=== PATIENT | male | born 1975 | race Caucasian/White ===

== ENCOUNTER 2021-06-29 19:18 | Emergency (ER) | payer MEDICARE ==
[~2021-06-29] VITALS: Ht 180.3 cm; Wt 61.1 kg
[2021-06-29 20:01] LABS: BASOPHILS # (AUTO) 0.1 X10'3 (0-0.2); BASOPHILS % (AUTO) 0.6 % (0-1); EOSINOPHILS # (AUTO) 0.1 X10'3 (0-0.9); EOSINOPHILS % (AUTO) 0.9 % (0-6); HEMATOCRIT 41.2 % (42.0-52.0); HEMOGLOBIN 14.4 g/dl (14.0-17.9); LYMPHOCYTES # (AUTO) 1.5 X10'3 (1.1-4.8); LYMPHOCYTES % (AUTO) 16.1 % (21-51); MEAN CORPUSCULAR HEMOGLOBIN 33.9 PG (27.0-31.0); MEAN CORPUSCULAR HGB CONC 34.8 g/dL (33.0-36.5); MEAN CORPUSCULAR VOLUME 97.4 FL (78-98); MEAN PLATELET VOLUME 7.7 FL (7.4-10.4); MONOCYTES # (AUTO) 0.7 X10'3 (0-0.9); NEUTROPHILS # (AUTO) 7.2 X10'3 (1.8-7.7); NEUTROPHILS % (AUTO) 75.4 % (42-75); PLATELET COUNT 242 X10'3 (140-440); RED BLOOD COUNT 4.23 X10'6 (4.70-6.10); RED CELL DISTRIBUTION WIDTH 13.5 % (11.5-14.5); WHITE BLOOD COUNT 9.5 X10'3 (4.5-11.0)
[2021-06-29 20:09] LABS: CHLORIDE 97 MMOL/L (99-107); GLUCOSE 82 MG/DL (70-104); POTASSIUM 3.8 MMOL/L (3.5-5.1); SODIUM 132 MMOL/L (135-145); TOTAL CARBON DIOXIDE 30.3 MMOL/L (24-32)
[2021-06-29 20:10] LABS: ALANINE AMINOTRANSFERASE 24 U/L (12-78); ALBUMIN 3.6 G/DL (3.4-5.0); ALKALINE PHOSPHATASE 82 IU/L (46-116); ANION GAP 5 (8-16); ASPARTATE AMINO TRANSFERASE 20 U/L (10-37); BILIRUBIN,TOTAL 0.4 MG/DL (0.1-1.0); BLOOD UREA NITROGEN 9 MG/DL (7-18); BUN/CREATININE RATIO 11.1 (5.4-32.0); CREATININE 0.81 MG/DL (0.60-1.10); LIPASE 142 U/L (73-393); TOTAL PROTEIN 7.2 G/DL (6.4-8.2); eGFR > 90 ML/MIN
[2021-06-29 20:41] LABS: CLARITY,URINE CLEAR (Clear); COLOR,URINE YELLOW (Yellow); PH,URINE 6.5 (4.8-8.0); PROTEIN,URINE NEGATIVE (Neg); UA COLLECTION TYPE CLN CATCH MIDSTREAM
[2021-06-29 20:42] LABS: GLUCOSE, URINE NEGATIVE (Neg); KETONES,URINE NEGATIVE (Neg); LEUKOCYTE ESTERASE ,URINE NEGATIVE (Neg); NITRITES, URINE NEGATIVE (Neg); OCCULT BLOOD,URINE NEGATIVE (Neg); UROBILINOGEN,URINE 0.2 E.U/dL (0.2-1.0)
[2021-06-29] MEDS ORDERED: FAMO40TA73 PO (22:53)
[2021-06-29 23:29] VITALS: BP 104/68
== END 2021-06-29 23:32 | disposition home or self-care (01) ==
LOC: ER 19:19
DX: R10.13 Epigastric pain (principal); R10.30 Lower abdominal pain, unspecified; K59.00 Constipation, unspecified; Z79.2 Long term (current) use of antibiotics; Z79.899 Other long term (current) drug therapy
CPT/HCPCS: 36415; 80053; 81003; 83690; 85025; 99283

== ENCOUNTER 2021-08-24 17:50 | Emergency (ER) | payer MEDICARE ==
[~2021-08-24 17:50] MED LIST: FAMO40TA73 PO
== END 2021-08-24 20:43 | disposition left against medical advice (07) ==
LOC: ER 17:50
DX: R19.5 Other fecal abnormalities (principal); Z53.21 Procedure and treatment not carried out due to patient leaving prior to being seen by health care provider

== ENCOUNTER 2021-09-24 16:41 | Emergency (ER) | payer MEDICARE ==
[~2021-09-24] VITALS: Ht 177.8 cm; Wt 145.0 kg
[2021-09-24 16:45] VITALS: BP 112/66
== END 2021-09-24 22:58 | disposition left against medical advice (07) ==
LOC: ER 16:41
DX: K59.00 Constipation, unspecified (principal); Z53.21 Procedure and treatment not carried out due to patient leaving prior to being seen by health care provider

== ENCOUNTER 2025-03-30 14:50 | Emergency (ER) | payer MEDICARE, MEDICAID ==
[~2025-03-30] VITALS: Ht 180.3 cm; Wt 61.8 kg
[2025-03-30 16:00] LABS: LEUKOCYTE ESTERASE ,URINE NEGATIVE (Neg); NITRITES, URINE NEGATIVE (Neg); OCCULT BLOOD,URINE TRACE-INTACT (Neg)
[2025-03-30 16:06] LABS: UA COLLECTION TYPE CLN CATCH MIDSTREAM
[2025-03-30 16:19] LABS: SQUAMOUS EPITHELIAL CELL,UR NONE SEEN /LPF (FEW)
--- NOTE | 2025-03-30 16:42 | RADIOLOGY REPORT ---
EXAM: US ULTRASOUND PELVIS W/ORWO DPLX CLINICAL HISTORY: Groin pain extending into lower abd TECHNIQUE: Transabdominal ultrasound of the pelvis with color Doppler flow as clinically indicated. COMPARISON: None Findings/Impression: No focal fluid collections, cystic or solid lesions. Multiple loops of peristalsing bowel are noted. Appendix not visualized. No definite hernia appreciated.
--- NOTE | 2025-03-30 17:15 | Physician Documentation ---
History of Present Illness ~ Chief Complaint: Groin Pain Stated Complaint: GROIN PAIN Time Seen by MD: 15:15 Primary Medical Doctor: [facility] HPI Patient is a 49-year-old gentleman that presents to the emergency department for complaints of right groin pain and lower abdominal discomfort. Patient is very sleepy and requires repeat questioning together history. Patient reports that he suffers with chronic constipation and an inability to completely empty his bowels often. Patient reports that his last partial bowel movement was yesterday and that it looked normal. Patient denies any fevers nausea vomiting blood in his stool or urine difficulty with urination pain in the penis or scrotum or testes or any other concerning symptoms at this time. Patient denies any known history of hernia or any recent trauma. Medication Reconciliation Allergies: Coded Allergies: amoxicillin (Unverified Allergy, Unknown, VOMITING/DIARRHEA, 03/30/25) Scheduled Famotidine (Pepcid), 1 TABLET PO DAILY Review of Systems ROS As stated above in the HPI, otherwise all systems are reviewed and negative. Physical Exam Vital Signs: Temperature: 98.0, Source: Temporal, Heart Rate: 73, Respiratory Rate: 16, BP: 124/83, Pulse Oximetry: 100, Weight: 61.800 Oxygen Flow Rate: 0 Physical Exam VITALS: Reviewed and as above. GENERAL: Alert but drowsy, no apparent distress. HEENT: Normocephalic, atraumatic, PERRL, EOMI, dry mucosa, no erythema RESPIRATORY: Lungs clear, normal breath sounds, no respiratory distress. CHEST: No accessory muscle use, no retractions CV: Regular rate, rhythm, no edema, no murmur, No: JVD GI: Soft, non-tender, bowels sounds present, no rebound, guarding, or rigidity : Right groin pain slightly radiating into the lower abdomen. BACK: No CVA tenderness, or swelling MUSCULOSKELETAL No deformities, no edema SKIN: Warm and dry, no rash NEURO: Oriented x4, No motor or sensory deficit PSYCH: Normal mood and affect, no agitation Progress Results/Orders Results/Orders Orders - SUNSHINE CHAPIN [employer]WR[employer]SEMBLER Ultrasound Pelvis W/Orwo Dplx (03/30/25 ) Completed Orders - SUNSHINE CHAPIN [employer]SEM[employer] Ultrasound Pelvis W/Orwo Dplx (03/30/25 ) Ua W/Microscopic, Cult If Ind (03/30/25 15:50) Vital Signs 03/30/25 14:57 Temp 98.0 Pulse 73 Resp 16 B/P (MAP) 124/83 Pulse Ox 100 O2 Flow Rate 0 Laboratory Tests Test 03/30/25 15:50 Urine Specimen Description Cln catch midstream Urine Color Straw Urine Clarity Clear Urine pH 7.0 Urine Specific [place] <=1.005 Urine Protein Negative Urine Glucose (UA) Negative Urine Ketones Negative Urine Occult Blood Trace-intact Urine Nitrite Negative Urine Bilirubin Negative Urine Urobilinogen 0.2 Urine Leukocyte Esterase Negative Urine RBC 0-2 Urine WBC 0-4 Urine Squamous Epithelial Cells None seen Urine Bacteria None seen Urine Culture Indicated Not ind Volume Urine Centrifuged 10 ml Urine Comment Medical Decision Making Findings Abdominal exam without peritoneal signs. No evidence of acute abdomen at this time. Well appearing. Given exam and workup, low suspicion for acute hepatobiliary disease (including acute cholecystitis or cholangitis), acute pancreatitis (neg lipase), PUD (including gastric perforation), acute infectious processes (pneumonia, hepatitis, pyelonephritis), acute appendicitis, vascular catastrophe, bowel obstruction, viscus perforation, or testicular torsion, diverticulitis. Presentation not consistent with other acute, emergent causes of abdominal pain at this time. Significant amounts of stool noted on imaging. Discussed with patient increasing fluids introducing MiraLax until his daily routine until soft bowel movements are obtained. Patient will follow up with his primary care provider. Patient will return to the emergency department if he develops fevers nausea vomiting increased pain chills lethargy urinary symptoms or inability to have a bowel movement for multiple days. Urinary Diff Dx:Considerations: Include: AAA, Aortic dissection, Appendicitis, Appendicitis train, Bowel obstruction, Bladder outlet obstruc., Cholelithiasis, Choleangitis, Cholecystitis, DJD, Epididymitis, Hepatitis, HNP, Impaction, Musculoskeletal pain, Pancreatitis, Postoperative Comp., Prostatitis, Pyelonephritis, Renal failure, Renal infarction, Strain, Urolithiasis, Urinary Obstruction, Urethritis, Urinary retention, UTI, Other Genital Diff Dx:Considerations: Include: Abscess, Balanitis, Balanoposthitis, Cellulitis, Epididymitis, Entrapment injury, Kee's gangrene, Foreign body, Facture penis, Hydrocele, Inguinal hernia, Post-op Complication, Paraphimosis, Prostatitis, Priapism, Syphilis, Testicular torsion, Torsion-epididymis, Torsion-appendiceal, Urinary retention, Urethritis, Urethritis-chlamydial, Urethritis-gonococcal, UTI, Other Departure Disposition: 01 HOME / SELF CARE / HOMELESS Impression: Primary Impression: Groin pain, chronic, right Condition: Stable Discharge Instructions: Constipation, Adult, [id number] Referrals: NO PRIMARY CARE PROVIDER (PCP) Prescriptions Polyethylene Glycol 3350 (Miralax) 17 Gram/Dose Powder 17 GM PO DAILY for constipation, #255 GM 0 Refills dissolve in water Prov: SUNSHINE CHAPIN 03/30/25 Education Educated: Patient Educated regarding: treatment, prognosis, need for follow up Signature Scribe Signature: A Attestation: Scribed for Sunshine Chapin by JESSICA Franco . 03/30/25 17:25 SUNSHINE CHAPIN Mar 30, 2025 17:15
[2025-03-30] MEDS ORDERED: POLY119P2 PO (17:24)
[2025-03-30 17:31] VITALS: BP 120/80; PULSE 72; RESP 16; TEMP 98.3; O2SAT 100
== END 2025-03-30 17:33 | disposition home or self-care (01) ==
LOC: ER 14:51
DX: R10.31 Right lower quadrant pain (principal); Z88.0 Allergy status to penicillin
CPT/HCPCS: 76857; 81001; 99284